=== PATIENT | female | born 1970 | race Caucasian/White ===

== ENCOUNTER 2017-01-06 12:25 | Emergency (ER) | payer OTHER ==
[~2017-01-06] VITALS: Ht 154.9 cm; Wt 79.0 kg
[~2017-01-06 12:25] MED LIST: BIRTH CONTROL PILLS; DOXYCYCLINE HY100 MG PO; ESTROSTEP FE PO; LIPITOR; LIPITOR10 MG PO; TOPAMAX; TOPAMAX50 MG PO
[2017-01-06 14:42] VITALS: BP 120/74
== END 2017-01-06 14:44 | disposition home or self-care (01) ==
LOC: EME 12:25
DX: T80.818A Extravasation of other vesicant agent, initial encounter (principal)
CPT/HCPCS: 99281; 99284